=== PATIENT | female | born 1985 | race Caucasian/White ===

== ENCOUNTER 2016-12-06 15:39 | Outpatient (CLI) | payer OTHER ==
--- NOTE | 2016-12-06 21:07 | ULT ---
OB ULTRASOUND: 12/06/16 CLINICAL HISTORY: Evaluation of size and dates. FINDINGS: There is a live intrauterine gestation which by sonographic assessment corresponds to an approximate 19 week, 0 day gestation placing estimated date of delivery by ultrasound at May 02, 2017. Est imated weight is 270 grams placing the fetus at the 87th percentile by Hadlock criteria. Documented cervical length of 3.4 cm noted. Fetus is in a variable lie on the provided view with a posteriorly located placenta. No evidence of previa. cardiac activity is documented at 145 beats per minute. There is a measured EVERETTE of robyn roximately 12 cm. The imaged anatomy including the cranium, spine, four chamber heart, gastric bubble, kid neys, cord insertion site three vessel cord reveal appropriate morphology without significant abnorm ality evident. IMPRESSION: Live intrauterine gestation as above. As clinically necessary, imaging followup may be obtained. POS: [facility]
== END 2016-12-06 15:40 | disposition home or self-care (01) ==
LOC: ULT 15:39
PROVIDERS: ATTEND Family Medicine
DX: Z34.92 Encounter for supervision of normal pregnancy, unspecified, second trimester (principal); Z3A.19 19 weeks gestation of pregnancy
CPT/HCPCS: 76805

== ENCOUNTER 2017-02-03 09:55 | Outpatient (CLI) | payer OTHER ==
--- NOTE | 2017-02-03 18:38 | MRI ---
MRI BRAIN NONCONTRAST 02/03/17 HISTORY: Headache. FINDINGS: There is no evidence of acute intracranial hemorrhage or infarct. The ventricles appear normal in siz e, shape and position. There is no mass effect or shift of midline structures. The visualized paranas al sinuses remain well aerated. IMPRESSION: No acute intracranial abnormalities are demonstrated. POS: [facility]
== END 2017-02-03 09:56 | disposition home or self-care (01) ==
LOC: SCSMRI 09:55
PROVIDERS: ATTEND Family Medicine
DX: R51 Headache (principal)
CPT/HCPCS: 70551

== ENCOUNTER 2017-02-08 20:18 | Emergency (ER) | payer OTHER ==
[2017-02-08] MEDS ORDERED: Metoclopramide HCl 10 MG/2 ML VIAL ONE (20:35)
[2017-02-08] MEDS ORDERED: Acetaminophen 500 MG TAB ONE (20:54)
== END 2017-02-08 21:42 | disposition home or self-care (01) ==
LOC: SCSER 20:18
DX: O99.89 Other specified diseases and conditions complicating pregnancy, childbirth and the puerperium (principal); R51 Headache; Z3A.27 27 weeks gestation of pregnancy
CPT/HCPCS: 96365; J2765

== ENCOUNTER 2017-02-24 03:07 | Emergency (ER) | payer OTHER ==
[2017-02-24] MEDS ORDERED: Ondansetron HCl/PF 4 MG/2 ML Vial ONE (03:29)
[2017-02-24] MEDS ORDERED: Promethazine HCl 25 MG/ML VIAL ONE (03:29)
[2017-02-24 03:35] LABS: #Basophils 0.1 thou/uL (0.0-0.2); #Lymphocytes 0.5 thou/uL (1.20-3.40); #Monocytes 0.6 thou/uL (0.11-0.59); #Neutrophils 11.2 thou/uL (1.40-6.50); %Basophils 0.5 % (0.0-1.0); %Eosinophils 0.2 % (0.0-10.0); %Monocytes 4.9 % (0.0-10.0); Hematocrit 32.9 % (36.0-47.0); Mean Platelet Volume 7.5 fL (7.4-10.4); Red Blood Cell (RBC) Count 4.04 mill/uL (4.20-5.40); White Blood Cell (WBC) Count 12.4 thou/uL (4.8-10.8)
[2017-02-24 03:50] LABS: ALT (SGPT) 21 U/L (8-55); AST (SGOT) 9 U/L (5-34); Alkaline Phosphatase 81 U/L (40-150); Anion Gap 18 mmol/L (10-20); BUN (Urea Nitrogen) 8 mg/dL (7.0-18.7); Bilirubin, Total 0.9 mg/dL (0.2-1.2); Calc. Creatinine Clearance 0 mL/min (70-130); Calcium 9.4 mg/dL (7.8-10.44); Carbon Dioxide 19 mmol/L (22-29); Chloride 105 mmol/L (98-107); Estimated GFR-MDRD Greater than 90; Globulin 3.2 g/dL (2.4-3.5); Protein, Total 6.9 g/dL (6.0-8.3)
[2017-02-24 04:31] LABS: Bilirubin Small (Negative); Blood, Urine Negative (Negative); Glucose, Urine (Dipstick) Negative (Negative); Ketone, Urine > or equal to 80 mg/dL (Negative); Nitrite Negative (Negative); Protein, Urine (Dipstick) Trace mg/dL (Neg-Trace); Urobilinogen 0.2 mg/dL (0.2-1.0)
[2017-02-24] MEDS ORDERED: Piperacillin/Tazobactam 3.375 GM VIAL ONE (04:36)
[2017-02-24 04:37] LABS: Bacteria/HPF 3+ HPF (None Seen); Hyaline Casts/LPF NONE SEEN LPF (0-3 Hyaline); RBC/HPF 0-3 HPF (0-3); Squamous Epithelial 0-3 HPF (0-3); Transitional Epithelial 0-3 HPF (0-3)
[2017-02-24] MEDS ORDERED: Acetaminophen 500 MG TAB ONE (05:29)
== END 2017-02-24 05:57 | disposition home or self-care (01) ==
LOC: SCSER 03:07
DX: O23.43 Unspecified infection of urinary tract in pregnancy, third trimester (principal); O99.613 Diseases of the digestive system complicating pregnancy, third trimester; K52.9 Noninfective gastroenteritis and colitis, unspecified; O99.283 Endocrine, nutritional and metabolic diseases complicating pregnancy, third trimester; E86.0 Dehydration; O99.353 Diseases of the nervous system complicating pregnancy, third trimester; G43.909 Migraine, unspecified, not intractable, without status migrainosus; Z3A.29 29 weeks gestation of pregnancy
CPT/HCPCS: 80053; 81003; 81015; 83605; 85025; 96361; 96365; 96375; J2405; J2543; J2550

== ENCOUNTER 2017-04-17 20:40 | Day surgery (SDC) | payer OTHER ==
[2017-04-17 21:27] VITALS: BMI 38.0
--- NOTE | 2017-04-18 00:32 | PRG ---
DATE OF ENCOUNTER: 04/17/2017 OB ER ENCOUNTER PRIMARY OB: Dr. Mojgan Mccall. CHIEF COMPLAINT: Elevated blood pressure. HISTORY OF PRESENT ILLNESS: The patient is a 31-year-old G1, P0 female with an intrauterine pregnanc y at 37 weeks and a day, who is presenting to Labor and Delivery with elevated blood pressures at the [place] office and at the grocery store. The patient notified her primary OB and was instructed to c ome to Labor and Delivery. The patient denies any headaches, chest pain, shortness of breath, fever, fall, headache, nausea, vomiting, diarrhea, constipation, abdominal pains. Denies any vaginal bleed ing, leakage of fluid, urinary urgency or frequency. The patient reports her blood pressures had bee n in the 140s on the top number and as high as 101 in the bottom number. PAST MEDICAL HISTORY: Negative. PAST SURGICAL HISTORY: Negative. ALLERGIES: No known drug allergies. SOCIAL HISTORY: The patient reports social drinking prior to the . OBSTETRIC HISTORY: This is her first . OBSTETRIC LABORATORY: GC and chlamydia were negative. One hour Glucola was 127. HIV was nonreactiv e. Group B strep is negative. She is rubella nonimmune. REVIEW OF SYSTEMS: Per HPI. PHYSICAL EXAMINATION: VITAL SIGNS: The patient had initial blood pressure of 142/85. The remainder of her blood pressures over hour and a half, blood pressures ranging from 126 to the initial 142 and 71 to 185, all but blo od pressures were in the normal range. GENERAL: The patient appeared to be in no acute distress. She is alert and oriented, cooperative an d pleasant to interact with. HEENT: Head is normocephalic, atraumatic. LUNGS: Clear to auscultation bilaterally. HEART: Regular rate and rhythm. ABDOMEN: Soft, nontender. EXTREMITIES: Nontender, nonedematous. heart tracing showed a baseline in the 120s with moderate long-term variability, positive accel erations, no decelerations, no regular contractions on the tocometer. ASSESSMENT AND PLAN: After 2 hours of evaluation here, the patient has only had a single mild elevat ion with initial blood pressure. She has a followup tomorrow with her primary OB at 11:00 o'clock. The patient will be discharged home and can follow up then for further evaluation. Fetus has a categ ory 1 tracing.
== END 2017-04-17 22:55 | disposition home or self-care (01) ==
LOC: L&D/OP 20:40
PROVIDERS: ATTEND Family Medicine
DX: O99.89 Other specified diseases and conditions complicating pregnancy, childbirth and the puerperium (principal); R03.0 Elevated blood-pressure reading, without diagnosis of hypertension; Z3A.37 37 weeks gestation of pregnancy; Z79.899 Other long term (current) drug therapy
CPT/HCPCS: 99282

== ENCOUNTER 2017-04-20 13:30 | Inpatient (IN) | payer OTHER ==
[2017-04-20] MEDS ORDERED: HYDROcodone/Acetaminophen 5/325 mg Tablet PO PRN (14:24)
[2017-04-20] MEDS ORDERED: Acetaminophen/Codeine 30-300mg Tablet PO PRN ×2 (14:24→22:49)
[2017-04-20] MEDS ORDERED: LR / Pitocin 40 units/1000 ml 1,000 ML IV PRN (14:24)
[2017-04-20] MEDS ORDERED: Promethazine HCl 25 MG/ML VIAL IM PRN (14:24)
[2017-04-20] MEDS ORDERED: Ondansetron HCl/PF 4 MG/2 ML Vial IVP PRN ×2 (14:24→22:49)
[2017-04-20] MEDS ORDERED: Lidocaine 1% (PF) 30 ML VIAL SC PRN (14:24)
[2017-04-20] MEDS ORDERED: Misoprostol 200 MCG TAB PR PRN (14:24)
[2017-04-20] MEDS ORDERED: LR 500 ML/Oxytocin 10 units 500 ML IV SCH ×2 (14:30)
[2017-04-20] MEDS: Lactated Ringer's 1,000 ML IV SCH ×2 (14:30→23:38)
[2017-04-20 14:54] VITALS: BMI 38.7
[2017-04-20 15:03] LABS: Bilirubin Negative (Negative); Blood, Urine Negative (Negative); Clarity CLOUDY (Clear); Glucose, Urine (Dipstick) Negative (Negative); Leukocyte Large (Negative); Nitrite Negative (Negative); Protein, Urine (Dipstick) Negative (Neg-Trace); Specific Gravity, Urine 1.015 (1.002-1.036)
[2017-04-20 15:05] LABS: Bacteria/HPF 1+ HPF (None Seen); Hemoglobin 10.3 g/dL (12.0-16.0); Hyaline Casts/LPF 4-6 HYALINE CAST LPF (0-3 Hyaline); Mean Corpuscular HGB CONC 32.7 g/dL (32.0-36.0); Mean Corpuscular Hemoglobin 26.6 pg (27.0-31.0); Mean Corpuscular Volume 81.5 fl (81.0-99.0); Mean Platelet Volume 9.4 fL (7.4-10.4); Pathc Cast-AUWi Flag 1.35 (0-2.49); Platelet Count 291 thou/uL (130-400); RBC Distribution Width 16.1 % (11.5-14.5); RBC/HPF 0-3 HPF (0-3); Red Blood Cell (RBC) Count 3.86 mill/uL (4.20-5.40); WBC/HPF 21-50 HPF (0-3); White Blood Cell (WBC) Count 9.4 thou/uL (4.8-10.8)
[2017-04-20 15:23] LABS: ALT (SGPT) 11 U/L (8-55); AST (SGOT) 8 U/L (5-34); Albumin 3.3 g/dL (3.5-5.0); Alkaline Phosphatase 126 U/L (40-150); Anion Gap 14 mmol/L (10-20); BUN (Urea Nitrogen) 8 mg/dL (7.0-18.7); Bilirubin, Total 0.6 mg/dL (0.2-1.2); Calc. Creatinine Clearance 248 mL/min (70-130); Calcium 9.3 mg/dL (7.8-10.44); Carbon Dioxide 20 mmol/L (22-29); Chloride 105 mmol/L (98-107); Estimated GFR-MDRD Greater than 90; Globulin 3.2 g/dL (2.4-3.5); Glucose 109 mg/dL (70-105); Potassium 3.9 mmol/L (3.5-5.1); Protein, Total 6.5 g/dL (6.0-8.3); Sodium 135 mmol/L (136-145)
[2017-04-20 15:41] LABS: HBSAg Index 0.15 S/CO (0-0.99); Hep B Surf Ag Non-Reactive S/CO (NonReactive)
[2017-04-20 15:42] LABS: Syphilis Antibody Nonreactive (Nonreactive); Syphilis Antibody Index 0.04 S/CO (<1.00 Non-Reactive)
[2017-04-20] MEDS: Acetaminophen 500 MG TAB PO PRN ×2 (17:22→18:01)
[2017-04-20] MEDS ORDERED: Acetaminophen 500 MG TAB PO SCH (18:30)
[2017-04-20] MEDS ORDERED: diphenhydrAMINE 25 MG CAP PO PRN (22:49)
[2017-04-20] MEDS ORDERED: Lanolin Ointment 7 GM TUBE TOP PRN (22:49)
[2017-04-20] MEDS ORDERED: Milk Of Magnesia 30 ML UDCUP PO PRN (22:49)
[2017-04-20] MEDS ORDERED: Bisacodyl 10 MG SUPP PR PRN (22:49)
[2017-04-20] MEDS ORDERED: Preparation H Ointment 28 GM TUBE PR PRN (22:49)
[2017-04-20] MEDS ORDERED: Benzocaine/Menthol 20-0.5% 60 ML CAN TOP PRN (22:49)
[2017-04-20] MEDS ORDERED: LR / Pitocin 40 units/1000 ml 1,000 ML IV SCH (22:49)
[2017-04-20] MEDS ORDERED: Docusate Calcium (SURFAK) 240 MG CAP PO SCH (23:00)
[2017-04-21] MEDS: HYDROcodone/Acetaminophen 5/325 mg Tablet PO PRN ×4 (03:42→20:54)
[2017-04-21] MEDS: Prenatal Vitamin 1 TAB PO SCH (08:58)
[2017-04-21] MEDS: Ferrous Sulfate 325 MG TAB PO SCH ×2 (08:59→17:30)
[2017-04-21] MEDS: Docusate Calcium (SURFAK) 240 MG CAP PO SCH ×2 (09:00→20:53)
[2017-04-22 08:10] VITALS: BP 120/62; TEMP 98.7
[2017-04-22] MEDS: Ferrous Sulfate 325 MG TAB PO SCH (08:11)
[2017-04-22] MEDS: Docusate Calcium (SURFAK) 240 MG CAP PO SCH (09:56)
[2017-04-22] MEDS: Prenatal Vitamin 1 TAB PO SCH (09:56)
[2017-04-22] MEDS ORDERED: Acetaminophen 500 MG TAB PO PRN (11:43)
[2017-04-22] MEDS ORDERED: Measles/Mumps/Rubella 10 MCG/0.5 ML VIAL SC ONE (11:45)
== END 2017-04-22 15:31 | disposition home or self-care (01) | DRG 775 ==
LOC: L&D 13:30 → 3SW 22:59
PROVIDERS: ADMIT Family Medicine; ATTEND Family Medicine
PROC: 10907ZC Drainage of Amniotic Fluid, Therapeutic from Products of Conception, Via Natural or Artificial Opening (ICD-10-PCS; principal; 2017-04-20)
PROC: 10E0XZZ Delivery of Products of Conception, External Approach (ICD-10-PCS; 2017-04-20)
PROC: 0KQM0ZZ Repair Perineum Muscle, Open Approach (ICD-10-PCS; 2017-04-20)
DX: O13.4 Gestational [pregnancy-induced] hypertension without significant proteinuria, complicating childbirth (principal); D64.9 Anemia, unspecified; Z37.0 Single live birth; Z3A.37 37 weeks gestation of pregnancy; O99.02 Anemia complicating childbirth; Z23 Encounter for immunization; O70.1 Second degree perineal laceration during delivery
CPT/HCPCS: 80053; 81001; 85027; 86780; 87340; 90707; J0595; J2001; J7120